=== PATIENT | female | born 1955 | race Caucasian/White ===

== ENCOUNTER 2018-11-21 08:19 | Day surgery (SDC) | payer OTHER ==
[~2018-11-21 08:19] MED LIST: AVAPRO300 MG; DICLOFENAC POTA50 MG; GABAPENTIN300 MG; GLIMEPIRIDE4 MG; JANUMET XR 50-1 EAC1; LANTUS100 U/ML; LOVAZA1 G; TUSSI-PRES LIQ118 ML PO; ZITHROMAX200 MG PO; ZOCOR40 MG
== END 2018-11-21 12:45 | disposition home or self-care (01) ==
LOC: AMB-ENDOS 08:19
DX: D12.3 Benign neoplasm of transverse colon (principal); K64.8 Other hemorrhoids

== ENCOUNTER 2019-07-05 11:33 | Outpatient (CLI) | payer OTHER | END 2019-07-05 12:00 | disposition home or self-care (01) | LOC: MAMO-SONO 11:33 | DX: Z12.31 Encounter for screening mammogram for malignant neoplasm of breast (principal) | CPT/HCPCS: 70553; 76641; 77067; A9575 ==

== ENCOUNTER 2019-07-05 11:57 | Outpatient (CLI) | payer OTHER | END 2019-07-05 12:30 | disposition home or self-care (01) | LOC: NUCLEAR 11:57 | DX: M81.0 Age-related osteoporosis without current pathological fracture (principal); E11.65 Type 2 diabetes mellitus with hyperglycemia; E55.9 Vitamin D deficiency, unspecified ==

== ENCOUNTER 2019-07-05 14:34 | Outpatient (CLI) | payer OTHER | END 2019-07-05 15:00 | disposition home or self-care (01) | LOC: MRI 14:34 | DX: G45.0 Vertebro-basilar artery syndrome (principal); R45.0 Nervousness | CPT/HCPCS: 70553; A9575 ==

== ENCOUNTER 2019-09-27 13:57 | Outpatient (CLI) | payer OTHER | END 2019-09-27 13:59 | disposition home or self-care (01) | LOC: TOM 13:57 | DX: H70.93 Unspecified mastoiditis, bilateral (principal); H70.13 Chronic mastoiditis, bilateral | CPT/HCPCS: 70481; Q9965 ==

== ENCOUNTER → 2020-04-01 | Outpatient (CLI) | payer OTHER | END | disposition home or self-care (01) | LOC: TOM 03-29 07:45 | PROVIDERS: ATTEND Internal Medicine | DX: K76.0 Fatty (change of) liver, not elsewhere classified (principal); K57.90 Diverticulosis of intestine, part unspecified, without perforation or abscess without bleeding ==

== ENCOUNTER 2020-12-30 17:48 | Emergency (ER) | payer OTHER ==
[~2020-12-30] VITALS: Ht 154.9 cm; Wt 77.1 kg
[~2020-12-30 17:48] MED LIST changes: +NABUMETONE750 MG PO
[2020-12-30] MEDS ORDERED: FENOFIBRATE145 MG PO (18:03)
[2020-12-30] MEDS ORDERED: FAMOTIDINE40 MG PO (18:03)
[2020-12-30] MEDS ORDERED: GLIMEPIRIDE4 M1 PO (18:03)
[2020-12-30] MEDS ORDERED: SIMVASTATIN40 MG PO (18:04)
[2020-12-30] MEDS ORDERED: PENTOXIFYLLINE400 MG PO (18:04)
[2020-12-30] MEDS ORDERED: LOSARTAN POTASS50 MG PO (18:04)
[2020-12-30] MEDS ORDERED: IRBESARTAN300 MG PO (18:04)
[2020-12-30] MEDS ORDERED: SOLIQUA 100 UNIT3 ML SQ (18:04)
[2020-12-30] MEDS ORDERED: METFORMIN HCL1000 M3 PO (18:04)
== END 2020-12-30 21:20 | disposition home or self-care (01) ==
LOC: ER 17:48
DX: E87.2 Acidosis (principal); K57.90 Diverticulosis of intestine, part unspecified, without perforation or abscess without bleeding; Z11.52 Encounter for screening for COVID-19

== ENCOUNTER → 2021-01-02 08:29 | Outpatient (CLI) | payer OTHER ==
[~2021-01-02 08:29] MED LIST changes: +FAMOTIDINE40 MG PO; +FENOFIBRATE145 MG PO; +GLIMEPIRIDE4 M1 PO; +IRBESARTAN300 MG PO; +LOSARTAN POTASS50 MG PO; +METFORMIN HCL1000 M3 PO; +PENTOXIFYLLINE400 MG PO; +SIMVASTATIN40 MG PO; +SOLIQUA 100 UNIT3 ML SQ
== END | disposition home or self-care (01) ==
LOC: NUCLEAR 12-26 08:00
PROVIDERS: ATTEND Internal Medicine Hematology & Oncology
DX: I82.493 Acute embolism and thrombosis of other specified deep vein of lower extremity, bilateral (principal); I87.2 Venous insufficiency (chronic) (peripheral)

== ENCOUNTER 2021-01-03 07:56 | Outpatient (CLI) | payer OTHER | END 2021-01-03 08:01 | disposition home or self-care (01) | LOC: NUCLEAR 07:56 | PROVIDERS: ATTEND Internal Medicine Hematology & Oncology | DX: I70.213 Atherosclerosis of native arteries of extremities with intermittent claudication, bilateral legs (principal) ==

== ENCOUNTER 2021-02-18 08:44 | Outpatient (CLI) | payer OTHER | END 2021-02-18 08:53 | disposition home or self-care (01) | LOC: SONOGRAMA 08:44 | PROVIDERS: ATTEND Specialist/Technologist, Other Nephrology | DX: R10.84 Generalized abdominal pain (principal); N18.30 Chronic kidney disease, stage 3 unspecified; R31.29 Other microscopic hematuria ==

== ENCOUNTER 2021-03-12 08:30 | Outpatient (CLI) | payer OTHER | END 2021-03-12 08:31 | disposition home or self-care (01) | LOC: NUCLEAR 08:30 | PROVIDERS: ATTEND Internal Medicine | DX: K81.1 Chronic cholecystitis (principal) | CPT/HCPCS: 78226; A9537; J2805 ==

== ENCOUNTER 2021-05-19 13:42 | Outpatient (CLI) | payer OTHER | END 2021-05-19 13:51 | disposition home or self-care (01) | LOC: SONOGRAMA 13:42 | PROVIDERS: ATTEND Otolaryngology | DX: R22.1 Localized swelling, mass and lump, neck (principal) ==

== ENCOUNTER 2021-10-24 10:51 | Outpatient (CLI) | payer OTHER | END 2021-10-24 11:30 | disposition home or self-care (01) | LOC: MAMO-SONO 10:51 | PROVIDERS: ATTEND Obstetrics & Gynecology | DX: N63.20 Unspecified lump in the left breast, unspecified quadrant (principal); N63.10 Unspecified lump in the right breast, unspecified quadrant; R19.02 Left upper quadrant abdominal swelling, mass and lump | CPT/HCPCS: 72195; 74181 ==

== ENCOUNTER → 2021-10-31 | Emergency (ER) | payer OTHER | END | disposition home or self-care (01) | LOC: ER 14:20 | DX: K57.32 Diverticulitis of large intestine without perforation or abscess without bleeding (principal) ==

== ENCOUNTER 2022-01-30 08:36 | Outpatient (CLI) | payer OTHER | END 2022-01-30 08:49 | disposition home or self-care (01) | LOC: TOM 08:36 | PROVIDERS: ATTEND Internal Medicine Gastroenterology | DX: R10.9 Unspecified abdominal pain (principal); K57.32 Diverticulitis of large intestine without perforation or abscess without bleeding ==

== ENCOUNTER 2022-02-06 18:09 | Emergency (ER) | payer OTHER ==
[~2022-02-06] VITALS: Ht 157.5 cm; Wt 72.6 kg
[2022-02-06] MEDS ORDERED: BACTRIM DS TAB1 EACH PO (20:24)
[2022-02-06] MEDS ORDERED: KETO10TA2 PO (20:24)
== END 2022-02-06 21:31 | disposition home or self-care (01) ==
LOC: ER 18:09
DX: L03.311 Cellulitis of abdominal wall (principal); T85.72XA Infection and inflammatory reaction due to insulin pump, initial encounter; X58.XXXA Exposure to other specified factors, initial encounter; E11.9 Type 2 diabetes mellitus without complications; Z79.84 Long term (current) use of oral hypoglycemic drugs; Z96.41 Presence of insulin pump (external) (internal); I10 Essential (primary) hypertension

== ENCOUNTER 2022-04-22 13:31 | Outpatient (CLI) | payer OTHER ==
[~2022-04-22 13:31] MED LIST changes: +BACTRIM DS TAB1 EACH PO; +KETO10TA2 PO
== END 2022-04-22 13:36 | disposition home or self-care (01) ==
LOC: RAD 13:31
PROVIDERS: ATTEND Physical Medicine & Rehabilitation
DX: M54.2 Cervicalgia (principal); M54.6 Pain in thoracic spine

== ENCOUNTER 2022-10-30 13:53 | Outpatient (CLI) | payer OTHER | END 2022-10-30 13:59 | disposition home or self-care (01) | LOC: RAD 13:53 | PROVIDERS: ATTEND Physical Medicine & Rehabilitation | DX: M25.511 Pain in right shoulder (principal); M25.512 Pain in left shoulder; M25.552 Pain in left hip ==

== ENCOUNTER 2023-10-28 17:03 | Outpatient (CLI) | payer OTHER | END 2023-10-28 17:06 | disposition home or self-care (01) | LOC: SONOGRAMA 17:03 | PROVIDERS: ATTEND Pathology Anatomic Pathology & Clinical Pathology | DX: D44.0 Neoplasm of uncertain behavior of thyroid gland (principal); C73 Malignant neoplasm of thyroid gland ==

== ENCOUNTER 2024-05-05 11:23 | Outpatient (CLI) | payer OTHER | END 2024-05-05 11:36 | disposition home or self-care (01) | LOC: RAD 11:23 | PROVIDERS: ATTEND Otolaryngology | DX: R22.1 Localized swelling, mass and lump, neck (principal) ==

== ENCOUNTER 2024-09-05 14:14 | Outpatient (CLI) | payer OTHER | END 2024-09-05 14:23 | disposition home or self-care (01) | LOC: MAMO-SONO 14:14 | PROVIDERS: ATTEND Student in an Organized Health Care Education/Training Program | DX: N60.11 Diffuse cystic mastopathy of right breast (principal); N60.12 Diffuse cystic mastopathy of left breast; Z12.31 Encounter for screening mammogram for malignant neoplasm of breast ==